=== PATIENT | female | born 1935 | race Caucasian/White ===

== ENCOUNTER → 2017-06-26 04:30 | Outpatient (REF) | payer MEDICARE, MEDICAID, SELFPAY ==
[2017-06-26 09:47] LABS: Hemoglobin A1c 6.1 % (4.2-6.3)
[2017-06-26 09:56] LABS: AST(SGOT) 14 U/L (15-37); Alanine Aminotransfer ALT/SGPT 22 U/L (12-78); Albumin, Serum 3.3 g/dL (3.4-5.0); Alkaline Phosphatase 54 U/L (45-117); Anion Gap 6 (5-15); BUN 28 mg/dL (7-18); BUN/Creat Ratio 25.2 RATIO (10-20); Bilirubin, Direct 0.16 mg/dL (0.00-0.30); Calcium,Total 8.7 mg/dL (8.5-10.1); Chloride 109 mmol/L (98-107); Cholesterol 96 mg/dL (200); Creatinine, Serum 1.11 mg/dL (0.55-1.02); EST Glomerular Filtration Rate 50 mL/min (>60); Est Glom Filt Rate - Afr Amer 61 mL/min (>60); Globulin 3.3 g/dL (2.2-4.2); Glucose 98 mg/dL (70-110); High Density Lipoprotein 58 mg/dL; Potassium 4.5 mmol/L (3.5-5.1); Protein, Total 6.6 g/dL (6.4-8.2); Sodium Level 142 mmol/L (136-145); Triglycerides 58 mg/dL; Very Low Density Lipoprotein 12 mg/dL (5-40)
== END ==
LOC: OLS.WCC 04:30
PROVIDERS: Visit Provider Family Medicine
DX: E11.9 Type 2 diabetes mellitus without complications (principal); I10 Essential (primary) hypertension; E78.5 Hyperlipidemia, unspecified
CPT/HCPCS: 36415; 80048; 80061; 80076; 83036

== ENCOUNTER → 2017-10-01 05:00 | Outpatient (REF) | payer MEDICARE, MEDICAID, SELFPAY ==
[2017-10-01 08:14] LABS: Hematocrit 24.8 % (37-47); Hemoglobin 8.2 g/dl (12.0-15.0); Mean Corp Hgb Conc 33.1 g/gl (32-36); Mean Corpuscular Hgb 30.8 pg (27.0-32.0); Mean Corpuscular Volume 93.2 fL (81-99); Mean Platelet Vol. 11.5 fl (6.2-12.0); Platelet Count 295 K/mm3 (150-450); RBC Distribution Width CV 19.6 % (11.6-14.6); RBC Distribution Width SD 62.9 fl (35.1-43.9); Red Blood Count 2.66 M/mm3 (4.2-5.4)
[2017-10-01 08:17] LABS: Scan Indicated on CBC? Y/N NO
[2017-10-01 08:21] LABS: Alanine Aminotransfer ALT/SGPT 21 U/L (13-56); Anion Gap 6 (5-15); BUN 24 mg/dL (7-18); BUN/Creat Ratio 21.1 RATIO (10-20); Calcium,Total 8.6 mg/dL (8.5-10.1); Chloride 107 mmol/L (98-107); Cholesterol 102 mg/dL (200); Creatinine, Serum 1.14 mg/dL (0.55-1.02); EST Glomerular Filtration Rate 49 mL/min (>60); Est Glom Filt Rate - Afr Amer 59 mL/min (>60); Glucose 101 mg/dL (74-106); High Density Lipoprotein 46 mg/dL; Potassium 4.8 mmol/L (3.5-5.1); Sodium Level 141 mmol/L (136-145); Triglycerides 112 mg/dL; Very Low Density Lipoprotein 22 mg/dL (5-40)
[2017-10-01 08:47] LABS: Hemoglobin A1c 5.8 % (4.2-6.3)
== END ==
LOC: OLS.WCC 05:00
PROVIDERS: Visit Provider Family Medicine
DX: E11.9 Type 2 diabetes mellitus without complications (principal); I10 Essential (primary) hypertension; E78.5 Hyperlipidemia, unspecified
CPT/HCPCS: 36415; 80048; 80061; 83036; 84460; 85027

== ENCOUNTER → 2017-10-19 05:00 | Outpatient (REF) | payer MEDICARE, MEDICAID, SELFPAY ==
[2017-10-19 09:22] LABS: Absolute Neutrophil Count 3.6 X10^3/uL (2.0-7.7); Basophil# 0.08 X10^3/uL; Basophil% 1.1 % (0-1); Eosinophil# 0.35 X10^3/uL; Hematocrit 24.9 % (37-47); Hemoglobin 8.3 g/dl (12.0-15.0); Mean Corp Hgb Conc 33.3 g/gl (32-36); Mean Corpuscular Hgb 31.2 pg (27.0-32.0); Mean Corpuscular Volume 93.6 fL (81-99); Mean Platelet Vol. 11.9 fl (6.2-12.0); Monocyte# 0.65 X10^3/uL; Monocyte% 9.2 % (0-10); Neutrophil # 3.57 X10^3/uL (2.7-7.7); Neutrophil % 50.6 % (47-70); Platelet Count 287 K/mm3 (150-450); RBC Distribution Width CV 19.6 % (11.6-14.6); RBC Distribution Width SD 63.5 fl (35.1-43.9); Red Blood Count 2.66 M/mm3 (4.2-5.4); White Blood Count 7.1 K/mm3 (4.4-11.0)
[2017-10-19 09:30] LABS: POSITIVE COUNT NO; POSITIVE DIFFERENTIAL NO; POSITIVE MORPHOLOGY NO
[2017-10-19 09:31] LABS: Vitamin B12 1296 pg/mL (211-911)
[2017-10-19 09:39] LABS: Ferritin 62 ng/mL (8-252)
== END ==
LOC: OLS.WCC 05:00
PROVIDERS: Visit Provider Family Medicine
DX: D64.9 Anemia, unspecified (principal); R53.83 Other fatigue
CPT/HCPCS: 36415; 82607; 82728; 85025

== ENCOUNTER → 2017-12-09 06:00 | Outpatient (REF) | payer MEDICARE, MEDICAID, SELFPAY ==
[2017-12-14 12:32] LABS: Vitamin B12 770 pg/mL (211-911)
[2017-12-14 12:33] LABS: Alanine Aminotransfer ALT/SGPT 21 U/L (13-56); Anion Gap 6 (5-15); BUN 26 mg/dL (7-18); BUN/Creat Ratio 22.8 RATIO (10-20); Calcium,Total 9.2 mg/dL (8.5-10.1); Chloride 110 mmol/L (98-107); Cholesterol 113 mg/dL (200); Creatinine, Serum 1.14 mg/dL (0.55-1.02); EST Glomerular Filtration Rate 49 mL/min (>60); Est Glom Filt Rate - Afr Amer 59 mL/min (>60); Glucose 70 mg/dL (74-106); High Density Lipoprotein 51 mg/dL; Potassium 4.6 mmol/L (3.5-5.1); Sodium Level 144 mmol/L (136-145); Triglycerides 92 mg/dL; Very Low Density Lipoprotein 18 mg/dL (5-40)
[2017-12-14 23:25] LABS: Hematocrit 27.2 % (37-47); Hemoglobin 9.1 g/dl (12.0-15.0); Hemoglobin A1c 5.9 % (4.2-6.3); Mean Corp Hgb Conc 33.5 g/gl (32-36); Mean Corpuscular Hgb 30.3 pg (27.0-32.0); Mean Corpuscular Volume 90.7 fL (81-99); Mean Platelet Vol. 10.5 fl (6.2-12.0); Platelet Count 340 K/mm3 (150-450); RBC Distribution Width CV 19.8 % (11.6-14.6); RBC Distribution Width SD 65.3 fl (35.1-43.9); White Blood Count 8.3 K/mm3 (4.4-11.0)
[2017-12-14 23:26] LABS: Differential Comment SCAN; Scan Indicated on CBC? Y/N YES- FLAGS NOTED
== END ==
LOC: OLS.WCC 06:00
PROVIDERS: Visit Provider Family Medicine
DX: D64.9 Anemia, unspecified (principal); E11.9 Type 2 diabetes mellitus without complications; I10 Essential (primary) hypertension; E78.5 Hyperlipidemia, unspecified; Z79.899 Other long term (current) drug therapy
CPT/HCPCS: 36415; 80048; 80061; 82607; 83036; 84460; 85027

== ENCOUNTER 2017-12-21 14:30 | Outpatient (RCR) | payer MEDICARE, MEDICAID, SELFPAY ==
[2016-12-18 13:02] LABS: Absolute Lymphocyte Count 1.86 X10^3/uL (0.83-4.51); Absolute Neutrophil Count 6.9 X10^3/uL (2.0-7.7); Basophil# 0.09 X10^3uL; Eosinophil# 0.23 X10^3/uL; Eosinophils% 2.4 % (0-5); Hematocrit 28.6 % (37-47); Hemoglobin 10.2 g/dL (12.0-15.0); Lymphocyte # 1.86 x10^3/uL (4.0); Lymphocyte % 19.2 % (19-41); Mean Corp Hgb Conc 35.6 g/dL (32-36); Mean Corpuscular Hgb 32.6 pg (27.0-32.0); Mean Corpuscular Volume 91.5 fL (81-99); Mean Platelet Vol. 7.9 fL (6.2-12.0); Monocyte# 0.58 X10^3/uL; Neutrophil # 6.93 X10^3/uL (2.7-7.7); Neutrophil % 71.5 % (47-70); Platelet Count 299 K/mm3 (150-450); Red Blood Count 3.13 M/mm3 (4.2-5.4); White Blood Count 9.7 K/mm3 (4.4-11.0)
[2016-12-18 13:29] VITALS: BP 96/61; PULSE 63; RESP 12; TEMP 36.6; O2SAT 98; BMI 23.8
[2016-12-18 13:47] LABS: AST(SGOT) 11 U/L (15-37); Alanine Aminotransfer ALT/SGPT 23 U/L (12-78); Albumin, Serum 3.5 g/dL (3.4-5.0); Alkaline Phosphatase 61 U/L (45-117); Anion Gap 6 (5-15); BUN 31 mg/dL (7-18); BUN/Creat Ratio 22.6 RATIO (10-20); Calcium,Total 9.3 mg/dL (8.5-10.1); Chloride 109 mmol/L (98-107); Creatinine, Serum 1.37 mg/dL (0.55-1.02); EST Glomerular Filtration Rate 39 mL/min (>60); Est Glom Filt Rate - Afr Amer 48 mL/min (>60); Estimated Creatinine Clearance 31.17 ml/min; Globulin 3.6 g/dL (2.3-3.5); Glucose 202 mg/dL (70-110); Potassium 5.3 mmol/L (3.5-5.1); Protein, Total 7.1 g/dL (6.4-8.2); Sodium Level 141 mmol/L (136-145)
--- NOTE | 2016-12-18 14:15 | PN_ITS ---
(1) Ductal carcinoma in situ (DCIS) of right breast Status: Resolved - Date of Service Date of Service:: 12/18/16 - Chief Complaint f/u for R breast cancer and DCIS. - History of Present Illness 81y.o.woman presented with R breast lesion on mammogram, had FNA which showed DCIS in 12/2010. 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 She is on observation, comes in for follow up. - Past Medical/Social History Cancer History Cancer: Breast cancer Past Medical History Past Medical History: Anemia,Diabetes mellitus,Hyperlipidemia, Hypertension,Hypocalcemia,Stroke Other Past Medical History: DIABETIC RETINOPATHY Past Surgical History Surgical: Breast,Cataract extraction,Knee arthroscopy, Mastectomy,Oophorectomy Other Surgical History: BILATERAL RETINA LASER SURGERY Family History Paternal Past Medical History: Unknown Paternal History of Cancer Stomach cancer Maternal Past Medical History: Diabetes mellitus,Heart disease,Hypertension Social History Smoking Status Never smoker Review of Systems Constitutional:: Denies: Fever, Sweats, Weight loss, Appetite change, Chills Cardiovascular:: Denies: Chest pain, Palpitations, Dyspnea on exertion, Orthopnea, PND, Shortness of breath Respiratory: Denies: Cough, Hemoptysis, Shortness of Breath, Wheezing Gastrointestinal:: Denies: Abdominal pain, Nausea, Vomiting, Diarrhea, Constipation, Hematochezia Genitourinary: Denies: Dysuria, Hematuria, 15, Flank pain Musculoskeletal:: Denies: Back pain, Myalgia, Arthralgia Skin: Denies: Rash, Skin Changes, Wounds Neurological:: Denies: Headache, Dizziness, Visual changes, Tinnitus, Hearing loss Psychiatric: Denies: Anxiety, Depression, Homicidal Ideations, Suicidal Ideations Objective Vital Signs Height 1.69 m Weight: 67.812 kg Weight in Pounds 149.0 lbs Pulse Ox 98 Temperature 97.9 F Pulse Rate 63 Respiratory Rate 12 Blood Pressure 96/61 Blood Pressure Position Sitting - Physical Exam General: Alert, Oriented x3, No apparent distress HEENT: Atraumatic, PERRLA, EOMI, Normocephalic Oropharynx:: Dry mucosa Neck:: Supple, Trachea midline. Negative for: JVD, bilateral Cardiac:: Regular rate, Regular rhythm, Normal S1, Normal S2. Negative for: Murmur Lungs: Clear to auscultation, Excusion symmetrical. Negative for: Rhonchi, Wheezes Abdomen:: Bowel sounds x 4, Soft, Non-tender, Non-distended. Negative for: Hepatosplenomegaly Extremities:: Negative for: Cyanosis, Edema Neurological: Neuro grossly intact Skin:: Negative for: Lesions, Rash, Petechiae, Ecchymosis Lymphatics:: Negative for: Cervical lymphadenopathy, Supraclavicular lymphadenopathy, Axillary lymphadenopathy Breast:: - - Right MRM scar, Left breast no masses palpable. Laboratory Data: Laboratory Tests 12/18/16 12/18/16 Range/Units 12:49 12:49 WBC 9.7 (4.4-11.0) K/mm3 RBC 3.13 L (4.2-5.4) M/mm3 Hgb 10.2 L (12.0-15.0) g/dL Hct 28.6 L (37-47) % MCV 91.5 (81-99) fL MCH 32.6 H (27.0-32.0) pg MCHC 35.6 (32-36) g/dL RDW 18.0 H (11.6-14.6) % Plt Count 299 (150-450) K/mm3 MPV 7.9 (6.2-12.0) fL Neut % (Auto) 71.5 H (47-70) % Lymph % (Auto) 19.2 (19-41) % [place] % (Auto) 6.0 (0-10) % Eos % (Auto) 2.4 (0-5) % Baso % (Auto) 1.0 (0-1) % Absolute Neuts (auto) 6.9 (2.0-7.7) X10^3/uL Absolute Lymphs (auto) 1.86 (0.83-4.51) X10^3/uL Total Counted Not Reportable Sodium 141 (136-145) mmol/L Potassium 5.3 H (3.5-5.1) mmol/L Chloride 109 H (98-107) mmol/L Carbon Dioxide 26.0 (21.0-32.0) mmol/L Anion Gap 6 (5-15) BUN 31 H (7-18) mg/dL Creatinine 1.37 H (0.55-1.02) mg/dL Estim Creat Clear Calc 31.17 ml/min Est GFR (MDRD) Af Amer 48 L (>60) mL/min Est GFR (MDRD) Non-Af 39 L (>60) mL/min BUN/Creatinine Ratio 22.6 H (10-20) RATIO Glucose 202 H (70-110) mg/dL Calcium 9.3 (8.5-10.1) mg/dL Total Bilirubin 0.50 (0.20-1.00) mg/dL AST 11 L (15-37) U/L ALT 23 (12-78) U/L Alkaline Phosphatase 61 (45-117) U/L Total Protein 7.1 (6.4-8.2) g/dL Albumin 3.5 (3.4-5.0) g/dL Globulin 3.6 H (2.3-3.5) g/dL Albumin/Globulin Ratio 1.0 (0.9-2.4) RATIO Assessment and Plan R breast cancer stage IA, ANITA clinically. Plan is to continue observation. RTC 1 year. Primary Care Provider: Referring Provider:
[2016-12-18 20:49] LABS: Xtra Tube EP Lab EXTRA TUBE
[2017-12-21 14:32] VITALS: BP 95/58; PULSE 68; RESP 12; TEMP 36.3; O2SAT 99; BMI 23.2
--- NOTE | 2017-12-21 15:17 | WMO.OV_ITS ---
Subjective - Date of Service Date of Service:: 12/21/17 - Chief Complaint F/u for R breast cancer and DCIS. - History of Present Illness 82y.o.woman presented with R breast lesion on mammogram, had FNA which showed DCIS in 12/2010. She underwent Right mastectomy on 02/11/2011 for R breast cancer , invasive ductal cancer stage I(pT1a pN0 M0) ER/[place] negative, Her2 3+ IHC, tumor size 1mm. She is on observation, comes in for follow up. - Past Medical/Social History Past Medical History Past Medical History: Anemia,Diabetes mellitus,Hyperlipidemia, Hypertension,Hypocalcemia,Stroke Other Past Medical History: DIABETIC RETINOPATHY Cancer: Breast cancer Past Surgical History Surgical: Breast,Cataract extraction,Knee arthroscopy, Mastectomy,Oophorectomy Other Surgical History: BILATERAL RETINA LASER SURGERY Family History Paternal Past Medical History: Unknown Paternal History of Cancer Stomach cancer Maternal Past Medical History: Diabetes mellitus,Heart disease,Hypertension Social History Smoking Status Never smoker Review of Systems Constitutional:: Denies: Fever, Sweats, Weight loss, Appetite change, Chills Cardiovascular:: Denies: Chest pain, Palpitations, Dyspnea on exertion, Orthopnea, PND, Shortness of breath Respiratory: Denies: Cough, Hemoptysis, Shortness of Breath, Wheezing Gastrointestinal:: Denies: Abdominal pain, Nausea, Vomiting, Diarrhea, Constipation, Hematochezia Genitourinary: Denies: Dysuria, Hematuria, 15, Flank pain Musculoskeletal:: Denies: Back pain, Myalgia, Arthralgia Skin: Denies: Rash, Skin Changes, Wounds Neurological:: Denies: Headache, Dizziness, Visual changes, Tinnitus, Hearing loss Psychiatric: Denies: Anxiety, Depression, Homicidal Ideations, Suicidal Ideations Vital Signs Height 5 ft 6.5 in Weight: 66.224 kg Weight in Pounds 146.0 lbs Pulse Ox 99 Temperature 97.4 F Pulse Rate 68 Respiratory Rate 12 Blood Pressure 95/58 Blood Pressure Position Sitting - Physical Exam General: Alert, Oriented x3, No apparent distress HEENT: Atraumatic, PERRLA, EOMI, Normocephalic Oropharynx:: Dry mucosa Neck:: Supple, Trachea midline. Negative for: JVD, bilateral Cardiac:: Regular rate, Regular rhythm, Normal S1, Normal S2. Negative for: Murmur Lungs: Clear to auscultation, Excusion symmetrical. Negative for: Rhonchi, Wheezes Abdomen:: Bowel sounds x 4, Soft, Non-tender, Non-distended. Negative for: Hepatosplenomegaly Neurological: Cranial nerves II-XII grossly intact Psychiatric:: Poor memory Lymphatics:: Negative for: Cervical lymphadenopathy, Supraclavicular lymphadenopathy, Axillary lymphadenopathy Breast:: - - R MRM scar, L breast no masses. Assessment and Plan Right breast cancer stage IA. No evidence of disease clinically. Dementia. Plan is to continue observation. RTC PRN. Medications: Prescriptions This Visit Medication Instructions Recorded Acetaminophen [Tylenol] 2 mg PO DAILY PRN 12/18/16 Amlodipine Besylate [Norvasc] 5 mg PO DAILY 12/18/16 Aspirin [Aspirin, Baby] 81 mg PO DAILY@0800 12/18/16 Atorvastatin Calcium [Lipitor] 10 mg PO DAILY 12/18/16 Calcium Carbonate [Calcium] 600 mg PO BID 12/18/16 Donepezil HCl [Aricept] 10 mg PO DAILY 12/18/16 Gabapentin [Neurontin] 100 mg PO DAILY 12/18/16 Insulin Aspart Prot/Insuln Asp 6 unit SQ DAILY 12/18/16 [Novolog Mix 70-30 Vial] Insulin Aspart Prot/Insuln Asp 18 unit SQ DAILY 12/18/16 [Novolog Mix 70-30 Vial] Lisinopril [Zestril] 2.5 mg PO DAILY 12/18/16 Metformin HCl [Glucophage] 500 mg PO BIDCM 12/18/16 [place]-3 Fatty Acids/Fish Oil [Fish 1 each PO BID 12/18/16 Oil 1,000 mg Capsule] Thera M Plus Tablet 1 tablet PO DAILY 12/18/16 Ferrous Sulfate 325 mg PO DAILY@0800 12/21/17 Primary Care Provider: No Primary Care Phys Referring Provider: No Primary Care Phys - Problem List (1) Ductal carcinoma in situ (DCIS) of right breast Status: Resolved (2) History of right breast cancer Status: Chronic Code Visit Office Visits / Consults: [id number] OV L3 Est
== END 2017-12-30 08:53 | disposition home or self-care (01) ==
LOC: OMD 14:30
PROVIDERS: Visit Provider Internal Medicine Medical Oncology
DX: Z08 Encounter for follow-up examination after completed treatment for malignant neoplasm (principal); Z85.3 Personal history of malignant neoplasm of breast
CPT/HCPCS: 36415; 80053; 85025

== ENCOUNTER → 2018-03-31 05:00 | Outpatient (REF) | payer MEDICARE, MEDICAID, SELFPAY ==
[2018-03-31 08:43] LABS: Hematocrit 24.7 % (37-47); Hemoglobin 8.1 g/dl (12.0-15.0); Mean Corp Hgb Conc 32.8 g/gl (32-36); Mean Corpuscular Volume 91.5 fL (81-99); Mean Platelet Vol. 10.7 fl (6.2-12.0); Platelet Count 311 K/mm3 (150-450); RBC Distribution Width CV 20.1 % (11.6-14.6); RBC Distribution Width SD 67.6 fl (35.1-43.9); Scan Indicated on CBC? Y/N YES- FLAGS NOTED; White Blood Count 7.5 K/mm3 (4.4-11.0)
[2018-03-31 08:53] LABS: Hemoglobin A1c 5.3 % (4.2-6.3)
[2018-03-31 08:58] LABS: Alanine Aminotransfer ALT/SGPT 20 U/L (13-56); Anion Gap 6 (5-15); BUN 34 mg/dL (7-18); BUN/Creat Ratio 28.8 RATIO (10-20); Calcium,Total 8.6 mg/dL (8.5-10.1); Chloride 110 mmol/L (98-107); Cholesterol 101 mg/dL (200); Creatinine, Serum 1.18 mg/dL (0.55-1.02); EST Glomerular Filtration Rate 47 mL/min (>60); Est Glom Filt Rate - Afr Amer 57 mL/min (>60); Glucose 78 mg/dL (74-106); High Density Lipoprotein 48 mg/dL; Potassium 4.7 mmol/L (3.5-5.1); Sodium Level 143 mmol/L (136-145); Triglycerides 66 mg/dL; Very Low Density Lipoprotein 13 mg/dL (5-40)
== END ==
LOC: OLS.WCC 05:00
PROVIDERS: Visit Provider Family Medicine
DX: E11.9 Type 2 diabetes mellitus without complications (principal); I10 Essential (primary) hypertension; E78.5 Hyperlipidemia, unspecified; Z79.899 Other long term (current) drug therapy
CPT/HCPCS: 36415; 80048; 80061; 83036; 84460; 85027

== ENCOUNTER → 2018-07-02 05:00 | Outpatient (REF) | payer MEDICARE, MEDICAID, SELFPAY ==
[2018-07-02 09:11] LABS: BUN 26 mg/dL (7-18); Creatinine, Serum 1.08 mg/dL (0.55-1.02); EST Glomerular Filtration Rate 52 mL/min (>60); Glucose 86 mg/dL (74-106)
[2018-07-02 09:12] LABS: Alanine Aminotransfer ALT/SGPT 23 U/L (13-56); Anion Gap 7 (5-15); BUN/Creat Ratio 24.1 RATIO (10-20); Calcium,Total 8.7 mg/dL (8.5-10.1); Chloride 110 mmol/L (98-107); Cholesterol 103 mg/dL (200); Est Glom Filt Rate - Afr Amer 63 mL/min (>60); High Density Lipoprotein 49 mg/dL; Potassium 4.6 mmol/L (3.5-5.1); Sodium Level 142 mmol/L (136-145); Triglycerides 83 mg/dL; Very Low Density Lipoprotein 17 mg/dL (5-40)
== END ==
LOC: OLS.WCC 05:00
PROVIDERS: Visit Provider Family Medicine
DX: I10 Essential (primary) hypertension (principal); E78.5 Hyperlipidemia, unspecified; E11.9 Type 2 diabetes mellitus without complications; Z79.899 Other long term (current) drug therapy
CPT/HCPCS: 36415; 80048; 80061; 83036; 84460

== ENCOUNTER → 2018-09-28 05:30 | Outpatient (REF) | payer MEDICARE, MEDICAID, SELFPAY ==
[2018-09-28 08:44] LABS: Hematocrit 26.2 % (37-47); Hemoglobin 8.4 g/dl (12.0-15.0); Mean Corp Hgb Conc 32.1 g/gl (32-36); Mean Corpuscular Volume 96.7 fL (81-99); Mean Platelet Vol. 11.3 fl (6.2-12.0); Platelet Count 341 K/mm3 (150-450); RBC Distribution Width CV 20.1 % (11.6-14.6); RBC Distribution Width SD 65.1 fl (35.1-43.9); Red Blood Count 2.71 M/mm3 (4.2-5.4); White Blood Count 7.3 K/mm3 (4.4-11.0)
[2018-09-28 08:50] LABS: Scan Indicated on CBC? Y/N YES- FLAGS NOTED
== END ==
LOC: OLS.WCC 05:30
PROVIDERS: Visit Provider Family Medicine
DX: D64.9 Anemia, unspecified (principal); I10 Essential (primary) hypertension
CPT/HCPCS: 36415; 85027

== ENCOUNTER → 2018-09-30 05:00 | Outpatient (REF) | payer MEDICARE, MEDICAID, SELFPAY ==
[2018-09-30 09:20] LABS: Alanine Aminotransfer ALT/SGPT 15 U/L (13-56); Anion Gap 6 (5-15); BUN 30 mg/dL (7-18); BUN/Creat Ratio 24.2 RATIO (10-20); Calcium,Total 8.7 mg/dL (8.5-10.1); Chloride 111 mmol/L (98-107); Cholesterol 98 mg/dL (200); Creatinine, Serum 1.24 mg/dL (0.55-1.02); EST Glomerular Filtration Rate 44 mL/min (>60); Est Glom Filt Rate - Afr Amer 53 mL/min (>60); Glucose 99 mg/dL (74-106); High Density Lipoprotein 44 mg/dL; Potassium 4.6 mmol/L (3.5-5.1); Sodium Level 143 mmol/L (136-145); Triglycerides 79 mg/dL; Very Low Density Lipoprotein 16 mg/dL (5-40)
[2018-09-30 09:27] LABS: Hematocrit 23.2 % (37-47); Hemoglobin 7.4 g/dl (12.0-15.0); Mean Corp Hgb Conc 31.9 g/gl (32-36); Mean Corpuscular Hgb 31.1 pg (27.0-32.0); Mean Corpuscular Volume 97.5 fL (81-99); Mean Platelet Vol. 11.8 fl (6.2-12.0); Platelet Count 277 K/mm3 (150-450); RBC Distribution Width SD 67.4 fl (35.1-43.9); Red Blood Count 2.38 M/mm3 (4.2-5.4); White Blood Count 7.7 K/mm3 (4.4-11.0)
[2018-09-30 09:30] LABS: Scan Indicated on CBC? Y/N YES- FLAGS NOTED
[2018-09-30 09:59] LABS: Hemoglobin A1c 6.9 % (4.2-6.3)
== END ==
LOC: OLS.WCC 05:00
PROVIDERS: Visit Provider Family Medicine
DX: E11.9 Type 2 diabetes mellitus without complications (principal); I10 Essential (primary) hypertension; E78.5 Hyperlipidemia, unspecified
CPT/HCPCS: 36415; 80048; 80061; 83036; 84460; 85027

== ENCOUNTER → 2018-10-14 05:00 | Outpatient (REF) | payer MEDICARE, MEDICAID, SELFPAY ==
[2018-10-14 08:42] LABS: Hematocrit 24.3 % (37-47); Mean Corp Hgb Conc 32.9 g/gl (32-36); Mean Corpuscular Hgb 30.9 pg (27.0-32.0); Mean Corpuscular Volume 93.8 fL (81-99); Mean Platelet Vol. 11.7 fl (6.2-12.0); Platelet Count 322 K/mm3 (150-450); RBC Distribution Width CV 19.3 % (11.6-14.6); RBC Distribution Width SD 62.6 fl (35.1-43.9); Red Blood Count 2.59 M/mm3 (4.2-5.4); White Blood Count 7.3 K/mm3 (4.4-11.0)
[2018-10-14 08:46] LABS: Scan Indicated on CBC? Y/N NO
[2018-10-14 09:10] LABS: Ferritin 90 ng/mL (8-252)
== END ==
LOC: OLS.WCC 05:00
PROVIDERS: Visit Provider Family Medicine
DX: D64.9 Anemia, unspecified (principal); E11.9 Type 2 diabetes mellitus without complications; Z79.899 Other long term (current) drug therapy
CPT/HCPCS: 36415; 82728; 85027

== ENCOUNTER → 2018-12-31 | Outpatient (REF) | payer MEDICARE, MEDICAID, SELFPAY ==
[2018-12-31 08:15] LABS: Alanine Aminotransfer ALT/SGPT 16 U/L (13-56); Anion Gap 4 (5-15); BUN 40 mg/dL (7-18); BUN/Creat Ratio 30.8 RATIO (10-20); Calcium,Total 8.5 mg/dL (8.5-10.1); Chloride 111 mmol/L (98-107); Cholesterol 97 mg/dL (200); EST Glomerular Filtration Rate 42 mL/min (>60); Est Glom Filt Rate - Afr Amer 50 mL/min (>60); Glucose 100 mg/dL (74-106); High Density Lipoprotein 46 mg/dL; Potassium 4.8 mmol/L (3.5-5.1); Sodium Level 141 mmol/L (136-145); Triglycerides 62 mg/dL; Very Low Density Lipoprotein 12 mg/dL (5-40)
[2018-12-31 08:17] LABS: Hemoglobin A1c 6.7 % (4.2-6.3)
== END | disposition home or self-care (01) ==
LOC: OLS.WCC 05:55
PROVIDERS: Visit Provider Family Medicine
DX: E11.9 Type 2 diabetes mellitus without complications (principal); I10 Essential (primary) hypertension; E78.5 Hyperlipidemia, unspecified; Z79.899 Other long term (current) drug therapy
CPT/HCPCS: 36415; 80048; 80061; 83036; 84460

== ENCOUNTER → 2019-03-31 05:00 | Outpatient (REF) | payer MEDICARE, MEDICAID, SELFPAY ==
[2019-03-31 08:28] LABS: Hematocrit 23.4 % (37-47); Hemoglobin 7.6 g/dL (12.0-15.0); Mean Corp Hgb Conc 32.5 g/dL (32-36); Mean Corpuscular Hgb 30.4 pg (27.0-32.0); Mean Corpuscular Volume 93.6 fL (81-99); Mean Platelet Vol. 11.8 fl (6.2-12.0); POSITIVE MORPHOLOGY YES; Platelet Count 296 K/mm3 (150-450); RBC Distribution Width CV 19.3 % (11.6-14.6); RBC Distribution Width SD 65.4 fl (35.1-43.9); White Blood Count 8.8 K/mm3 (4.4-11.0)
[2019-03-31 08:29] LABS: Scan Indicated on CBC? Y/N YES- FLAGS NOTED
[2019-03-31 08:44] LABS: Alanine Aminotransfer ALT/SGPT 19 U/L (13-56); Anion Gap 6 (5-15); BUN 34 mg/dL (7-18); BUN/Creat Ratio 31.2 RATIO (10-20); Calcium,Total 8.7 mg/dL (8.5-10.1); Chloride 110 mmol/L (98-107); Cholesterol 104 mg/dL (200); Creatinine, Serum 1.09 mg/dL (0.55-1.02); EST Glomerular Filtration Rate 51 mL/min (>60); Est Glom Filt Rate - Afr Amer 62 mL/min (>60); Glucose 77 mg/dL (74-106); High Density Lipoprotein 51 mg/dL; Sodium Level 142 mmol/L (136-145); Triglycerides 77 mg/dL; Very Low Density Lipoprotein 15 mg/dL (5-40)
[2019-03-31 08:52] LABS: Differential Comment SCANNED
== END ==
LOC: OLS.WCC 05:00
PROVIDERS: Visit Provider Family Medicine
DX: D64.9 Anemia, unspecified (principal); E11.9 Type 2 diabetes mellitus without complications; I10 Essential (primary) hypertension; E78.5 Hyperlipidemia, unspecified; Z79.899 Other long term (current) drug therapy
CPT/HCPCS: 36415; 80048; 80061; 83036; 84460; 85027

== ENCOUNTER → 2019-07-01 05:00 | Outpatient (REF) | payer MEDICARE, MEDICAID, SELFPAY ==
[2019-07-01 07:22] LABS: Alanine Aminotransfer ALT/SGPT 16 U/L (13-56); Anion Gap 4 (5-15); BUN 34 mg/dL (7-18); BUN/Creat Ratio 30.9 RATIO (10-20); Calcium,Total 8.5 mg/dL (8.5-10.1); Chloride 111 mmol/L (98-107); Cholesterol 116 mg/dL (200); EST Glomerular Filtration Rate 51 mL/min (>60); Est Glom Filt Rate - Afr Amer 61 mL/min (>60); Glucose 99 mg/dL (74-106); High Density Lipoprotein 54 mg/dL; Potassium 4.6 mmol/L (3.5-5.1); Sodium Level 143 mmol/L (136-145); Triglycerides 66 mg/dL; Very Low Density Lipoprotein 13 mg/dL (5-40)
[2019-07-01 08:54] LABS: Hemoglobin A1c 6.3 % (4.2-6.3)
== END ==
LOC: OLS.WCC 05:00
PROVIDERS: Visit Provider Family Medicine
DX: D64.9 Anemia, unspecified (principal); E11.9 Type 2 diabetes mellitus without complications; E78.5 Hyperlipidemia, unspecified; Z79.899 Other long term (current) drug therapy
CPT/HCPCS: 36415; 80048; 80061; 83036; 84460

== ENCOUNTER → 2019-07-11 04:00 | Outpatient (REF) | payer MEDICARE, MEDICAID, SELFPAY ==
[2019-07-11 08:59] LABS: Hematocrit 25.4 % (37-47); Hemoglobin 8.5 g/dL (12.0-15.0); Mean Corp Hgb Conc 33.5 g/dL (32-36); Mean Corpuscular Hgb 31.7 pg (27.0-32.0); Mean Corpuscular Volume 94.8 fL (81-99); Mean Platelet Vol. 11.6 fl (6.2-12.0); POSITIVE MORPHOLOGY YES; Platelet Count 335 K/mm3 (150-450); RBC Distribution Width CV 19.9 % (11.6-14.6); RBC Distribution Width SD 67.1 fl (35.1-43.9); Red Blood Count 2.68 M/mm3 (4.2-5.4); White Blood Count 7.8 K/mm3 (4.4-11.0)
[2019-07-11 09:00] LABS: Scan Indicated on CBC? Y/N YES- FLAGS NOTED
== END ==
LOC: OLS.WCC 04:00
PROVIDERS: Visit Provider Family Medicine
DX: D64.9 Anemia, unspecified (principal); I10 Essential (primary) hypertension
CPT/HCPCS: 36415; 85027

== ENCOUNTER → 2019-12-12 05:00 | Outpatient (REF) | payer MEDICARE, MEDICAID, SELFPAY ==
[2019-12-12 08:48] LABS: Hematocrit 21.5 % (37-47); Hemoglobin 6.9 g/dL (12.0-15.0); Mean Corp Hgb Conc 32.1 g/dL (32-36); Mean Corpuscular Hgb 31.8 pg (27.0-32.0); Mean Corpuscular Volume 99.1 fL (81-99); POSITIVE MORPHOLOGY YES; Platelet Count 338 K/mm3 (150-450); RBC Distribution Width CV 21.2 % (11.6-14.6); RBC Distribution Width SD 75.9 fl (35.1-43.9); Red Blood Count 2.17 M/mm3 (4.2-5.4); White Blood Count 8.1 K/mm3 (4.4-11.0)
[2019-12-12 08:57] LABS: Scan Indicated on CBC? Y/N YES- FLAGS NOTED
[2019-12-12 09:08] LABS: ALB/GLOB Ratio 0.9 RATIO (0.9-2.4); AST(SGOT) 23 U/L (15-37); Alanine Aminotransfer ALT/SGPT 31 U/L (13-56); Albumin, Serum 2.9 g/dL (3.2-5.0); Alkaline Phosphatase 45 U/L (45-117); Anion Gap 4 (5-15); BUN 51 mg/dL (7-18); BUN/Creat Ratio 50.5 RATIO (10-20); Calcium,Total 8.5 mg/dL (8.5-10.1); Chloride 112 mmol/L (98-107); Creatinine, Serum 1.01 mg/dL (0.55-1.02); EST Glomerular Filtration Rate 56 mL/min (>60); Est Glom Filt Rate - Afr Amer 67 mL/min (>60); Ferritin 135 ng/mL (8-252); Globulin 3.2 g/dL (2.2-4.2); Glucose 63 mg/dL (74-106); Potassium 4.9 mmol/L (3.5-5.1); Protein, Total 6.1 g/dL (6.4-8.2); Sodium Level 141 mmol/L (136-145); Thyroid Stim Hormone (TSH) 4.41 uIU/mL (0.358-3.74)
[2019-12-27 10:30] VITALS: BMI 20.5
== END ==
LOC: OLS.WCC 05:00
PROVIDERS: Visit Provider Family Medicine
DX: D64.9 Anemia, unspecified (principal); E11.9 Type 2 diabetes mellitus without complications; E03.9 Hypothyroidism, unspecified; Z79.899 Other long term (current) drug therapy
CPT/HCPCS: 36415; 80053; 82728; 84443; 85027

== ENCOUNTER → 2019-12-23 05:00 | Outpatient (REF) | payer MEDICARE, MEDICAID, SELFPAY ==
[2019-12-23 07:16] LABS: Basophil# 0.06 X10^3/uL; Basophil% 0.7 % (0-1); Eosinophil# 0.32 X10^3/uL; Eosinophils% 3.6 % (0-5); Hematocrit 20.4 % (37-47); Hemoglobin 6.5 g/dL (12.0-15.0); Lymphocyte % 21.1 % (19-41); Mean Corp Hgb Conc 31.9 g/dL (32-36); Mean Corpuscular Hgb 31.1 pg (27.0-32.0); Mean Corpuscular Volume 97.6 fL (81-99); Mean Platelet Vol. 11.9 fl (6.2-12.0); Monocyte# 0.72 X10^3/uL; NRBC Flagged by Analyzer 0 % (0-5); Neutrophil # 5.97 X10^3/uL (2.7-7.7); Neutrophil % 66.3 % (47-70); POSITIVE MORPHOLOGY YES; Platelet Count 353 K/mm3 (150-450); RBC Distribution Width CV 20.4 % (11.6-14.6); RBC Distribution Width SD 70.6 fl (35.1-43.9); Red Blood Count 2.09 M/mm3 (4.2-5.4)
[2019-12-23 07:20] LABS: Differential Indicated SCAN CRITERIA MET
[2019-12-23 08:52] LABS: ALB/GLOB Ratio 0.8 RATIO (0.9-2.4); AST(SGOT) 19 U/L (15-37); Alanine Aminotransfer ALT/SGPT 31 U/L (13-56); Albumin, Serum 2.8 g/dL (3.2-5.0); Alkaline Phosphatase 52 U/L (45-117); Anion Gap 5 (5-15); BUN 62 mg/dL (7-18); BUN/Creat Ratio 51.7 RATIO (10-20); Calcium,Total 8.5 mg/dL (8.5-10.1); Chloride 114 mmol/L (98-107); EST Glomerular Filtration Rate 46 mL/min (>60); Est Glom Filt Rate - Afr Amer 55 mL/min (>60); Ferritin 115 ng/mL (8-252); Globulin 3.4 g/dL (2.2-4.2); Glucose 82 mg/dL (74-106); Iron 70 ug/dL (50-170); Iron Binding Capacity,Total 226 ug/dL (250-450); LDH 134 U/L (84-246); Potassium 5.2 mmol/L (3.5-5.1); Protein, Total 6.2 g/dL (6.4-8.2); Sodium Level 143 mmol/L (136-145); T4 Total, Thyroxin 6.1 ug/dL (4.8-13.9)
[2019-12-23 09:16] LABS: Vitamin B12 953 pg/mL (211-911)
== END ==
LOC: OLS.WCC 05:00
PROVIDERS: Visit Provider Family Medicine
DX: D64.9 Anemia, unspecified (principal); R53.83 Other fatigue; R53.1 Weakness
CPT/HCPCS: 36415; 80053; 82607; 82728; 82746; 83540; 83550; 83615; 84436; 84443; 85025

== ENCOUNTER → 2019-12-24 13:30 | Outpatient (REF) | payer MEDICARE, MEDICAID, SELFPAY | LOC: OLS.WCC 13:30 | PROVIDERS: Referring Provider Family Medicine; Visit Provider Family Medicine | DX: D64.9 Anemia, unspecified (principal); R53.83 Other fatigue; R53.1 Weakness | CPT/HCPCS: 82274 ==

== ENCOUNTER → 2019-12-26 04:00 | Outpatient (REF) | payer MEDICARE, MEDICAID, SELFPAY ==
[2019-12-26 07:50] LABS: Absolute Lymphocyte Count 1.03 X10^3/uL (0.83-4.51); Basophil# 0.07 X10^3/uL; Basophil% 0.4 % (0-1); Eosinophil# 0.05 X10^3/uL; Eosinophils% 0.3 % (0-5); Hematocrit 21.5 % (37-47); Hemoglobin 6.8 g/dL (12.0-15.0); Lymphocyte # 1.03 X10^3/ul (4.0); Lymphocyte % 6.5 % (19-41); Mean Corp Hgb Conc 31.6 g/dL (32-36); Mean Corpuscular Hgb 31.1 pg (27.0-32.0); Mean Corpuscular Volume 98.2 fL (81-99); Mean Platelet Vol. 12.1 fl (6.2-12.0); Monocyte# 0.57 X10^3/uL; Monocyte% 3.6 % (0-10); NRBC Flagged by Analyzer 0 % (0-5); Neutrophil # 14.03 X10^3/uL (2.7-7.7); Neutrophil % 88.8 % (47-70); POSITIVE MORPHOLOGY YES; Platelet Count 409 K/mm3 (150-450); RBC Distribution Width CV 20.3 % (11.6-14.6); Red Blood Count 2.19 M/mm3 (4.2-5.4); White Blood Count 15.8 K/mm3 (4.4-11.0)
[2019-12-26 08:02] LABS: Differential Indicated SCAN CRITERIA MET
[2019-12-26 08:21] LABS: Thyroid Stim Hormone (TSH) 3.88 uIU/mL (0.358-3.74)
[2019-12-26 08:29] LABS: Anisocytosis 1+
== END ==
LOC: OLS.WCC 04:00
PROVIDERS: Visit Provider Family Medicine
DX: D64.9 Anemia, unspecified (principal); R53.83 Other fatigue; R53.1 Weakness
CPT/HCPCS: 36415; 84436; 84443; 85025; 86850; 86900; 86901; 86920; 86922

== ENCOUNTER → 2020-01-04 10:15 | Outpatient (REF) | payer MEDICARE, MEDICAID, SELFPAY ==
[2019-12-27 10:30] VITALS: BMI 20.5
[2020-01-04 11:39] LABS: Hematocrit 29.4 % (37-47); Hemoglobin 9.2 g/dL (12.0-15.0); Mean Corp Hgb Conc 31.3 g/dL (32-36); Mean Corpuscular Hgb 30.7 pg (27.0-32.0); Mean Platelet Vol. 12.3 fl (6.2-12.0); Platelet Count 272 K/mm3 (150-450); RBC Distribution Width CV 16.3 % (11.6-14.6); RBC Distribution Width SD 57.4 fl (35.1-43.9); White Blood Count 8.2 K/mm3 (4.4-11.0)
[2020-01-04 12:07] LABS: Anion Gap 5 (5-15); BUN 47 mg/dL (7-18); BUN/Creat Ratio 47.6 RATIO (10-20); Calcium,Total 8.4 mg/dL (8.5-10.1); Chloride 112 mmol/L (98-107); Cholesterol 85 mg/dL (200); Creatinine, Serum 0.99 mg/dL (0.55-1.02); EST Glomerular Filtration Rate 57 mL/min (>60); Est Glom Filt Rate - Afr Amer 69 mL/min (>60); Glucose 101 mg/dL (74-106); High Density Lipoprotein 41 mg/dL; Sodium Level 141 mmol/L (136-145); Triglycerides 113 mg/dL; Very Low Density Lipoprotein 23 mg/dL (5-40)
[2020-01-04 12:14] LABS: Hemoglobin A1c 5.6 % (3.8-5.6)
== END ==
LOC: OLS.WCC 10:15
PROVIDERS: Referring Provider Family Medicine; Visit Provider Family Medicine
DX: E11.9 Type 2 diabetes mellitus without complications (principal); I10 Essential (primary) hypertension; E78.5 Hyperlipidemia, unspecified; Z79.899 Other long term (current) drug therapy
CPT/HCPCS: 36415; 80048; 80061; 83036; 85027

== ENCOUNTER → 2020-02-13 04:00 | Outpatient (REF) | payer MEDICARE, MEDICAID, SELFPAY ==
[2019-12-27 10:30] VITALS: BMI 20.5
[2020-02-13 07:42] LABS: Hematocrit 22.1 % (37-47); Hemoglobin 6.9 g/dL (12.0-15.0); Mean Corp Hgb Conc 31.2 g/dL (32-36); Mean Corpuscular Hgb 29.5 pg (27.0-32.0); Mean Corpuscular Volume 94.4 fL (81-99); Mean Platelet Vol. 11.9 fl (6.2-12.0); Platelet Count 295 K/mm3 (150-450); RBC Distribution Width SD 55.7 fl (35.1-43.9); Red Blood Count 2.34 M/mm3 (4.2-5.4); White Blood Count 8.9 K/mm3 (4.4-11.0)
== END ==
LOC: OLS.WCC 04:00
PROVIDERS: Visit Provider Family Medicine
DX: D64.9 Anemia, unspecified (principal)
CPT/HCPCS: 36415; 85027

== ENCOUNTER → 2020-02-20 05:00 | Outpatient (REF) | payer MEDICARE, MEDICAID, SELFPAY ==
[2019-12-27 10:30] VITALS: BMI 20.5
[2020-02-20 08:36] LABS: Hematocrit 22.3 % (37-47); Hemoglobin 7.1 g/dL (12.0-15.0); Mean Corp Hgb Conc 31.8 g/dL (32-36); Mean Corpuscular Hgb 30.6 pg (27.0-32.0); Mean Corpuscular Volume 96.1 fL (81-99); Platelet Count 316 K/mm3 (150-450); RBC Distribution Width CV 17.9 % (11.6-14.6); Red Blood Count 2.32 M/mm3 (4.2-5.4); White Blood Count 8.7 K/mm3 (4.4-11.0)
== END ==
LOC: OLS.WCC 05:00
PROVIDERS: Visit Provider Family Medicine
DX: D64.9 Anemia, unspecified (principal); I10 Essential (primary) hypertension; E78.5 Hyperlipidemia, unspecified
CPT/HCPCS: 36415; 85027

== ENCOUNTER → 2020-02-29 14:12 | Outpatient (REF) | payer MEDICARE, MEDICAID, SELFPAY ==
[2019-12-27 10:30] VITALS: BMI 20.5
== END ==
LOC: OLS.WCC 14:12
PROVIDERS: Referring Provider Family Medicine; Visit Provider Family Medicine
DX: Z20.828 Contact with and (suspected) exposure to other viral communicable diseases (principal)
CPT/HCPCS: 87635; U0003

== ENCOUNTER → 2020-03-01 05:00 | Outpatient (REF) | payer MEDICARE, MEDICAID, SELFPAY ==
[2019-12-27 10:30] VITALS: BMI 20.5
[2020-03-01 09:01] LABS: Hemoglobin 6.5 g/dL (12.0-15.0); Mean Corp Hgb Conc 32.5 g/dL (32-36); Mean Corpuscular Hgb 30.8 pg (27.0-32.0); Mean Corpuscular Volume 94.8 fL (81-99); Mean Platelet Vol. 11.5 fl (6.2-12.0); Platelet Count 265 K/mm3 (150-450); RBC Distribution Width CV 18.1 % (11.6-14.6); Red Blood Count 2.11 M/mm3 (4.2-5.4); White Blood Count 4.6 K/mm3 (4.4-11.0)
== END ==
LOC: OLS.WCC 05:00
PROVIDERS: Visit Provider Family Medicine
DX: N18.3 Chronic kidney disease, stage 3 (moderate) (principal); D64.9 Anemia, unspecified; E78.5 Hyperlipidemia, unspecified
CPT/HCPCS: 36415; 85027

== ENCOUNTER → 2020-03-26 11:00 | Outpatient (REF) | payer MEDICARE, MEDICAID, SELFPAY ==
[2019-12-27 10:30] VITALS: BMI 20.5
[2020-03-26 13:30] LABS: Hematocrit 21.9 % (37-47); Hemoglobin 6.8 g/dL (12.0-15.0); Mean Corp Hgb Conc 31.1 g/dL (32-36); Mean Corpuscular Hgb 31.3 pg (27.0-32.0); Mean Corpuscular Volume 100.9 fL (81-99); Mean Platelet Vol. 11.8 fl (6.2-12.0); POSITIVE MORPHOLOGY YES; Platelet Count 302 K/mm3 (150-450); RBC Distribution Width CV 19.9 % (11.6-14.6); Red Blood Count 2.17 M/mm3 (4.2-5.4); Scan Indicated on CBC? Y/N YES- FLAGS NOTED; White Blood Count 7.9 K/mm3 (4.4-11.0)
== END ==
LOC: OLS.WCC 11:00
PROVIDERS: Visit Provider Family Medicine
DX: D64.9 Anemia, unspecified (principal)
CPT/HCPCS: 85027

== ENCOUNTER → 2020-04-03 15:00 | Outpatient (REF) | payer MEDICARE, MEDICAID, SELFPAY ==
[2020-04-03 17:16] LABS: Hematocrit 19.2 % (37-47); Hemoglobin 6.1 g/dL (12.0-15.0); Mean Corp Hgb Conc 31.8 g/dL (32-36); Mean Corpuscular Hgb 31.9 pg (27.0-32.0); Mean Corpuscular Volume 100.5 fL (81-99); Mean Platelet Vol. 12.1 fl (6.2-12.0); POSITIVE MORPHOLOGY YES; Platelet Count 323 K/mm3 (150-450); RBC Distribution Width CV 19.9 % (11.6-14.6); RBC Distribution Width SD 72.2 fl (35.1-43.9); Red Blood Count 1.91 M/mm3 (4.2-5.4)
[2020-04-03 17:17] LABS: Scan Indicated on CBC? Y/N YES- FLAGS NOTED
[2020-04-03 17:45] LABS: Differential Comment SCANNED
== END ==
LOC: OLS.WCC 15:00
PROVIDERS: Referring Provider Family Medicine; Visit Provider Family Medicine
DX: D64.9 Anemia, unspecified (principal); F03.90 Unspecified dementia, unspecified severity, without behavioral disturbance, psychotic disturbance, mood disturbance, and anxiety; E11.9 Type 2 diabetes mellitus without complications; I10 Essential (primary) hypertension
CPT/HCPCS: 85027

== ENCOUNTER → 2020-04-04 10:15 | Outpatient (REF) | payer MEDICARE, MEDICAID, SELFPAY ==
[2019-12-27 10:30] VITALS: BMI 20.5
== END ==
LOC: OLS.WCC 10:15
PROVIDERS: Referring Provider Family Medicine; Visit Provider Family Medicine
DX: D64.9 Anemia, unspecified (principal)
CPT/HCPCS: 36415; 86850; 86900; 86901; 86920; 86922

== ENCOUNTER → 2020-04-06 07:37 | Outpatient (CLI) | payer MEDICARE, MEDICAID, SELFPAY ==
[2019-12-27 10:30] VITALS: BMI 20.5
[2020-04-06] VITALS (8 sets, daily range): BP systolic 84–99; BP diastolic 25–53; PULSE 64–78; RESP 16; TEMP 36.1–37.3; O2SAT 98–100
== END ==
PROVIDERS: Referring Provider Family Medicine; Visit Provider Family Medicine
DX: D64.9 Anemia, unspecified (principal)
CPT/HCPCS: 36415; 36430; 86850; 86900; 86901; 86920; 86922; J7040; P9016; A4216

== ENCOUNTER → 2020-04-17 05:00 | Outpatient (REF) | payer MEDICARE, MEDICAID, SELFPAY ==
[2020-04-17 09:49] LABS: Hemoglobin 9.4 g/dL (12.0-15.0); Mean Corp Hgb Conc 32.4 g/dL (32-36); Mean Corpuscular Hgb 31.5 pg (27.0-32.0); Mean Corpuscular Volume 97.3 fL (81-99); Platelet Count 175 K/mm3 (150-450); RBC Distribution Width CV 15.9 % (11.6-14.6); RBC Distribution Width SD 55.7 fl (35.1-43.9); Red Blood Count 2.98 M/mm3 (4.2-5.4); White Blood Count 6.8 K/mm3 (4.4-11.0)
== END ==
LOC: OLS.WCC 05:00
PROVIDERS: Visit Provider Family Medicine
DX: D64.9 Anemia, unspecified (principal); E11.9 Type 2 diabetes mellitus without complications; I10 Essential (primary) hypertension; E78.5 Hyperlipidemia, unspecified; Z79.899 Other long term (current) drug therapy
CPT/HCPCS: 36415; 85027

== ENCOUNTER → 2020-05-18 05:00 | Outpatient (REF) | payer MEDICARE, MEDICAID, SELFPAY ==
[2019-12-27 10:30] VITALS: BMI 20.5
[2020-05-18 09:01] LABS: Hematocrit 22.5 % (37-47); Hemoglobin 7.2 g/dL (12.0-15.0); Mean Corpuscular Hgb 30.8 pg (27.0-32.0); Mean Corpuscular Volume 96.2 fL (81-99); Platelet Count 294 K/mm3 (150-450); RBC Distribution Width CV 15.7 % (11.6-14.6); Red Blood Count 2.34 M/mm3 (4.2-5.4); White Blood Count 7.5 K/mm3 (4.4-11.0)
== END ==
LOC: OLS.WCC 05:00
PROVIDERS: Visit Provider Family Medicine
DX: D64.9 Anemia, unspecified (principal); E11.9 Type 2 diabetes mellitus without complications; I10 Essential (primary) hypertension; E78.5 Hyperlipidemia, unspecified
CPT/HCPCS: 36415; 85027

== ENCOUNTER → 2020-06-05 07:10 | Outpatient (REF) | payer MEDICARE, MEDICAID, SELFPAY ==
[2019-12-27 10:30] VITALS: BMI 20.5
[2020-06-05 08:29] LABS: Hematocrit 23.6 % (37-47); Hemoglobin 7.4 g/dL (12.0-15.0); Mean Corp Hgb Conc 31.4 g/dL (32-36); Mean Corpuscular Hgb 31.2 pg (27.0-32.0); Mean Corpuscular Volume 99.6 fL (81-99); Mean Platelet Vol. 12.1 fl (6.2-12.0); Platelet Count 273 K/mm3 (150-450); RBC Distribution Width CV 17.8 % (11.6-14.6); RBC Distribution Width SD 64.2 fl (35.1-43.9); Red Blood Count 2.37 M/mm3 (4.2-5.4); White Blood Count 9.1 K/mm3 (4.4-11.0)
== END ==
LOC: OLS.WCC 07:10
PROVIDERS: Referring Provider Family Medicine; Visit Provider Family Medicine
DX: D64.9 Anemia, unspecified (principal)
CPT/HCPCS: 36415; 85027; 86850; 86900; 86901

== ENCOUNTER → 2020-06-18 05:15 | Outpatient (REF) | payer MEDICARE, MEDICAID, SELFPAY ==
[2019-12-27 10:30] VITALS: BMI 20.5
[2020-06-18 08:10] LABS: Hematocrit 23.5 % (37-47); Hemoglobin 7.3 g/dL (12.0-15.0); Mean Corp Hgb Conc 31.1 g/dL (32-36); Mean Corpuscular Hgb 31.2 pg (27.0-32.0); Mean Corpuscular Volume 100.4 fL (81-99); Mean Platelet Vol. 12.2 fl (6.2-12.0); POSITIVE MORPHOLOGY YES; Platelet Count 301 K/mm3 (150-450); RBC Distribution Width CV 18.4 % (11.6-14.6); RBC Distribution Width SD 66.5 fl (35.1-43.9); Red Blood Count 2.34 M/mm3 (4.2-5.4); White Blood Count 8.1 K/mm3 (4.4-11.0)
[2020-06-18 08:13] LABS: Scan Indicated on CBC? Y/N YES- FLAGS NOTED
[2020-06-18 08:42] LABS: Differential Comment SCANNED
== END ==
LOC: OLS.WCC 05:15
PROVIDERS: Referring Provider Family Medicine; Visit Provider Family Medicine
DX: D64.9 Anemia, unspecified (principal)
CPT/HCPCS: 36415; 85027

== ENCOUNTER → 2020-07-18 05:00 | Outpatient (REF) | payer MEDICARE, MEDICAID, SELFPAY ==
[2019-12-27 10:30] VITALS: BMI 20.5
[2020-07-18 07:45] LABS: Mean Corp Hgb Conc 31.1 g/dL (32-36); Mean Corpuscular Hgb 31.4 pg (27.0-32.0); Mean Corpuscular Volume 101.1 fL (81-99); Mean Platelet Vol. 11.6 fl (6.2-12.0); POSITIVE COUNT YES; POSITIVE MORPHOLOGY YES; Platelet Count 327 K/mm3 (150-450); RBC Distribution Width CV 18.6 % (11.6-14.6); RBC Distribution Width SD 68.6 fl (35.1-43.9); Red Blood Count 1.88 M/mm3 (4.2-5.4); White Blood Count 7.9 K/mm3 (4.4-11.0)
[2020-07-18 08:03] LABS: Anion Gap 5 (5-15); BUN 53 mg/dL (7-18); BUN/Creat Ratio 42.4 RATIO (10-20); Calcium,Total 8.2 mg/dL (8.5-10.1); Chloride 112 mmol/L (98-107); Cholesterol 105 mg/dL (200); Creatinine, Serum 1.25 mg/dL (0.55-1.02); EST Glomerular Filtration Rate 44 mL/min (>60); Est Glom Filt Rate - Afr Amer 53 mL/min (>60); Glucose 70 mg/dL (74-106); High Density Lipoprotein 34 mg/dL; Potassium 5.1 mmol/L (3.5-5.1); Sodium Level 140 mmol/L (136-145); Triglycerides 87 mg/dL; Very Low Density Lipoprotein 17 mg/dL (5-40)
[2020-07-18 08:10] LABS: Hemoglobin 5.9 g/dL (12.0-15.0); Scan Indicated on CBC? Y/N YES- FLAGS NOTED
[2020-07-18 08:33] LABS: Differential Comment SCANNED
[2020-07-18 09:05] LABS: Hemoglobin A1c 6.4 % (3.8-5.6)
[2020-07-19 13:24] LABS: Pathologist Review Reviewed
== END ==
LOC: OLS.WCC 05:00
PROVIDERS: Visit Provider Family Medicine
DX: D64.9 Anemia, unspecified (principal); E11.9 Type 2 diabetes mellitus without complications; E78.5 Hyperlipidemia, unspecified; Z79.899 Other long term (current) drug therapy
CPT/HCPCS: 36415; 80048; 80061; 83036; 85027